=== PATIENT | male | born 1965 | race African-American/Black ===

== ENCOUNTER 2017-04-20 21:12 | Emergency (ER) | payer BC, MEDICAID ==
[~2017-04-20] VITALS: Ht 195.6 cm; Wt 114.9 kg
[~2017-04-20 21:12] MED LIST: CYCL-259 PO; DOCU100C PO; DOXY50CA42 PO; HYDR-3307; HYDR-3307 PO; METF10002 PO; None at this time; OXYC-229 PO; SENN1TAB7 PO; TAMS-11 PO
[2017-04-20 21:42] VITALS: BP 126/60
[2017-04-20] MEDS ORDERED: ACETAMINOPHEN 325 MG TABLET PO ONE (22:00)
[2017-04-20] MEDS ORDERED: LIDOCAINE 1%, 20ML INFIL ONE (22:00)
[2017-04-20] MEDS ORDERED: IBUPROFEN 200 MG TABLET PO ONE (22:00)
[2017-04-20] MEDS ORDERED: LIDOCAINE 1%, 20ML ONE (22:20)
== END 2017-04-20 23:27 | disposition home or self-care (01) ==
LOC: ED 23:21
DX: L02.214 Cutaneous abscess of groin (principal); E11.9 Type 2 diabetes mellitus without complications
CPT/HCPCS: 10060

== ENCOUNTER 2017-06-27 12:22 | Emergency (ER) | payer BC, MEDICAID ==
[~2017-06-27] VITALS: Ht 195.6 cm; Wt 107.9 kg
[2017-06-27 12:27] VITALS: BP 130/86
[2017-06-27] MEDS ORDERED: LIDOCAINE 1%, 20ML SQ ONE (13:00)
[2017-06-27] MEDS ORDERED: MORPHINE SULFATE 4 MG/ML, 1ML IVPush PRN (13:00)
[2017-06-27] MEDS ORDERED: ONDANSETRON 2MG/ML, 2ML IVPush ONE (13:00)
[2017-06-27] MEDS ORDERED: ASPIRIN 81 MG TABLET CHEW PO ONE (13:00)
[2017-06-27] MEDS ORDERED: SODIUM CHLORIDE FLUSH 10ML SYR IVF ONE (13:00)
[2017-06-27 13:13] LABS: HEMATOCRIT 46.8 % (39.2-51.8); HEMOGLOBIN 15.8 g/dL (13.7-18.0); WHITE BLOOD COUNT 10.9 x10^3/uL (3.4-10)
[2017-06-27 13:25] LABS: BLOOD UREA NITROGEN 8 mg/dL (7-18)
[2017-06-27 13:32] LABS: ASPARTATE AMINO TRANSFERASE 33 U/L (15-37)
[2017-06-27 13:33] LABS: IS PT STATUS REG ER OR PRE ER? YES
[2017-06-27] MEDS ORDERED: MORPHINE SULFATE 4 MG/ML, 1ML ONE (13:35)
[2017-06-27] MEDS ORDERED: LIDOCAINE 1%, 20ML ONE ×2 (13:36→13:53)
[2017-06-27] MEDS ORDERED: ASPIRIN 81 MG TABLET CHEW ONE (13:36)
[2017-06-27] MEDS ORDERED: ONDANSETRON 2MG/ML, 2ML ONE (13:36)
== END 2017-06-27 14:47 | disposition home or self-care (01) ==
LOC: ED 14:30
DX: L02.31 Cutaneous abscess of buttock (principal); R07.89 Other chest pain; G89.29 Other chronic pain; E11.9 Type 2 diabetes mellitus without complications
CPT/HCPCS: 10060; 36415; 71010; 80053; 84484; 85025; 93005; 96374; 96375; 99285; J2405

== ENCOUNTER 2017-06-29 23:06 | Emergency (ER) | payer MEDICAID ==
[~2017-06-29] VITALS: Ht 195.6 cm; Wt 109.1 kg
[2017-06-29 23:08] VITALS: BP 120/77
== END 2017-06-30 00:05 | disposition home or self-care (01) ==
LOC: ED 23:56
DX: K61.1 Rectal abscess (principal); E11.9 Type 2 diabetes mellitus without complications
CPT/HCPCS: 99281